=== PATIENT | male | born 1940 | race African-American/Black ===

== ENCOUNTER 2017-09-28 09:39 | Outpatient (CLI) | payer MEDICARE ==
--- NOTE | 2017-09-28 11:17 | Cat Scan Report ---
CT ABDOMEN PELVIS WITHOUT CONTRAST: HISTORY: Left upper quadrant abdominal pain. COMPARISON: none. TECHNIQUE: Helical CT in 1.25mm intervals without IV contrast. Sagittal and coronal reconstructions. FINDINGS: Lung bases: Adequately aerated. Heart size is borderline. Liver: Mild diffuse fatty infiltration is noted. No focal mass or surface nodularity is identified. Biliary system: Normal. Pancreas: Normal. Spleen: Normal. Kidneys/ureters/bladder: Normal. Adrenal glands: Normal. Aorta: Moderate diffuse calcifications. No aneurysm. Intestines: Normal. Appendix: Not confidently identified, correlate with surgical history. Pelvic viscera: Normal. Ascites: None. Adenopathy: None. Musculoskeletal: Mild osteopenia and mild diffuse degenerative changes. No acute fracture or bone lesion identified. IMPRESSION: Mild fatty infiltration of the liver. No acute inflammatory process or clear explanation for left upper quadrant pain. Mild cardiomegaly.
== END 2017-09-28 09:40 | disposition home or self-care (01) ==
LOC: CT 09:39
PROVIDERS: ATTEND Urology
DX: K40.90 Unilateral inguinal hernia, without obstruction or gangrene, not specified as recurrent (principal); I51.7 Cardiomegaly; K76.0 Fatty (change of) liver, not elsewhere classified; I70.0 Atherosclerosis of aorta; M85.88 Other specified disorders of bone density and structure, other site; M47.899 Other spondylosis, site unspecified; I10 Essential (primary) hypertension
CPT/HCPCS: 74176

== ENCOUNTER 2020-07-24 09:34 | Emergency (ER) | payer MEDICARE ==
[2020-07-24] MEDS ORDERED: oxyCODONE /ACETAMINOPHEN 5-325MG TAB PO ONE ×2 (09:53→15:05)
[2020-07-24] MEDS ORDERED: KETOROLAC 60 MG/2 ML INJ IM ONE (09:53)
--- NOTE | 2020-07-24 10:09 | Emergency Department Report ---
ED General Adult HPI - General Chief complaint: Extremity Injury, Lower Stated complaint: GOUT Time Seen by Provider: 07/24/20 09:54 Source: family, EMS Mode of arrival: Wheelchair Limitations: Language Barrier - History of Present Illness Initial comments: 79-year-old male patient with history of hypertension, HLD, and gout presents with complaints of gout attack in the left ankle x3 days. Patient reports history of gout in the ankles. He denies any fever/chills/sweats or injury to the ankle. No history of diabetes or other immunocompromising diseases per patient. He rates his pain as a 10/10 in severity. - Related Data Home Medications Medication Instructions Recorded Confirmed Last Taken Alendronate Sodium [Fosamax] 70 mg PO QWEEK 11/30/15 11/30/15 Unknown Benzonatate [Tessalon Perles] 100 mg PO Q8HR 11/30/15 11/30/15 Unknown Celecoxib [celeBREX] 200 mg PO BID 11/30/15 11/30/15 Unknown Fluticasone Propionate [Flovent 1 puff IH BID 11/30/15 11/30/15 Unknown Diskus] Montelukast [Singulair] 10 mg PO QPM 11/30/15 11/30/15 Unknown Simvastatin [Zocor TAB] 10 mg PO QHS 11/30/15 11/30/15 Unknown Tamsulosin [Flomax] 0.4 mg PO QDAY 11/30/15 11/30/15 Unknown amLODIPine 10 mg PO DAILY 11/30/15 11/30/15 Unknown Previous Rx's Medication Instructions Recorded Last Taken Type levoFLOXacin [Levaquin] 750 mg PO QDAY #5 tablet 12/02/15 Unknown Rx Acetaminophen/Codeine [Tylenol 1 tab PO Q8H PRN #6 tab 07/24/20 Unknown Rx /Codeine # 3 tab] Prednisone [predniSONE 10 mg 10 mg PO .TAPER #1 tab.ds.pk 07/24/20 Unknown Rx (6-Day Pack, 21 Tabs)] Allergies Allergy/AdvReac Type Severity Reaction Status Date / Time No Known Allergies Allergy Verified 07/24/20 09:35 ED Review of Systems ROS: Stated complaint: GOUT Other details as noted in HPI Constitutional: denies: chills, fever, malaise, weakness Musculoskeletal: joint swelling, arthralgia Skin: denies: change in color Neurological: denies: numbness, paresthesias ED Past Medical Hx - Past Medical History Hx Hypertension: Yes Hx HIV: No Additional medical history: HIGH CHOLESTROL - Surgical History Additional Surgical History: Glaucoma 1 year ago in right eye - Social History Smoking Status: Never Smoker Substance Use Type: None - Medications Home Medications: Home Medications Medication Instructions Recorded Confirmed Last Taken Type Alendronate Sodium [Fosamax] 70 mg PO QWEEK 11/30/15 11/30/15 Unknown History Benzonatate [Tessalon Perles] 100 mg PO Q8HR 11/30/15 11/30/15 Unknown History Celecoxib [celeBREX] 200 mg PO BID 11/30/15 11/30/15 Unknown History Fluticasone Propionate [Flovent 1 puff IH BID 11/30/15 11/30/15 Unknown History Diskus] Montelukast [Singulair] 10 mg PO QPM 11/30/15 11/30/15 Unknown History Simvastatin [Zocor TAB] 10 mg PO QHS 11/30/15 11/30/15 Unknown History Tamsulosin [Flomax] 0.4 mg PO QDAY 11/30/15 11/30/15 Unknown History amLODIPine 10 mg PO DAILY 11/30/15 11/30/15 Unknown History levoFLOXacin [Levaquin] 750 mg PO QDAY #5 tablet 12/02/15 Unknown Rx Acetaminophen/Codeine [Tylenol 1 tab PO Q8H PRN #6 tab 07/24/20 Unknown Rx /Codeine # 3 tab] Prednisone [predniSONE 10 mg 10 mg PO .TAPER #1 tab.ds.pk 07/24/20 Unknown Rx (6-Day Pack, 21 Tabs)] ED Physical Exam - General Limitations: Language Barrier General appearance: alert, in no apparent distress - Head Head exam: Present: atraumatic, normocephalic - Eye Eye exam: Present: normal appearance. Absent: scleral icterus - Respiratory Respiratory exam: Absent: respiratory distress - Cardiovascular Cardiovascular Exam: Present: regular rate, normal rhythm - Expanded Lower Extremity Exam Left Ankle exam: Present: tenderness (Diffuse), swelling (Moderate). Absent: full ROM (Decreased secondary to pain), ecchymosis, erythema Neuro vascular tendon exam: Present: no vascular compromise. Absent: sensory deficit, pallor - Neurological Exam Neurological exam: Present: alert, oriented X3 - Psychiatric Psychiatric exam: Present: normal affect, normal mood - Skin Skin exam: Present: warm, dry, intact, normal color. Absent: rash ED Course Vital Signs 07/24/20 07/24/20 09:41 11:42 Temperature 99.8 F H Pulse Rate 115 H 108 H Respiratory 20 18 Rate Blood Pressure 132/76 Blood Pressure 115/77 [Left] O2 Sat by Pulse 97 98 Oximetry ED Medical Decision Making - Lab Data Result diagrams: 07/24/20 12:17 07/24/20 12:17 - Radiology Data Radiology results: report reviewed - Medical Decision Making 79-year-old male patient with history of hypertension, HLD, and gout presents with complaints of gout attack in the left ankle x3 days. Patient reports history of gout in the ankles. He denies any fever/chills/sweats or injury to the ankle. No history of diabetes or other immunocompromising diseases per patient. He rates his pain as a 10/10 in severity. No signs of cellulitis noted on exam. Low-grade temp of 99.8 noted with mild ta chycardia. CBC shows white count of 15.5. Anion gap noted to be 23 on CMP. X- ray is negative for any osteomyelitis or acute bony abnormalities. Uric acid is elevated patient given 1 L saline and Toradol, prednisone, and Percocet. Vitals on repeat are normal with decreased pain and fluids. He is well- appearing and stable for discharge home. Recommend follow-up with primary care doctor within 2 days. The emergency department in detail with patient and patient's daughter both state understanding. Critical care attestation.: If time is entered above; I have spent that time in minutes in the direct care of this critically ill patient, excluding procedure time. ED Disposition Clinical Impression: Gout attack Qualifiers: Gout site: ankle Gout etiology: idiopathic Laterality: left Qualified Code(s): M10.072 - Idiopathic gout, left ankle and foot Disposition: TO HOME OR SELFCARE Is pt being admited?: No Condition: Stable Instructions: Low-Purine Eating Plan Prescriptions: Prednisone [predniSONE 10 mg (6-Day Pack, 21 Tabs)] 10 mg PO .TAPER #1 tab.ds.pk Acetaminophen/Codeine [Tylenol /Codeine # 3 tab] 1 tab PO Q8H PRN #6 tab PRN Reason: Pain , Severe (7-10) Referrals: PRIMARY CARE, [Primary Care Provider] - 3-5 Days
[2020-07-24 12:35] LABS: Basophils # (Auto) 0.1 K/mm3 (0.0-0.1); Basophils % (Auto) 0.3 % (0.0-1.8); Hematocrit 42.8 % (35.5-45.6); Hemoglobin 14.6 gm/dl (11.8-15.2); Lymphocytes # (Auto) 1.3 K/mm3 (1.2-5.4); Lymphocytes % (Auto) 8.5 % (13.4-35.0); Mean Corpuscular HGB Conc 34 % (32-34); Mean Corpuscular Volume 99 fl (84-94); Monocytes # (Auto) 1.8 K/mm3 (0.0-0.8); Monocytes % (Auto) 11.4 % (0.0-7.3); Platelet Count 268 K/mm3 (140-440); Red Blood Count 4.33 M/mm3 (3.65-5.03); Red Cell Distribution Width 13.5 % (13.2-15.2)
--- NOTE | 2020-07-24 12:35 | XRay Report ---
LEFT ANKLE 4 VIEW(S) INDICATION / CLINICAL INFORMATION: acute pain and swelling, hx of gout COMPARISON: None available. FINDINGS: BONES / JOINT(S): No acute fracture or subluxation. No significant arthritis. The ankle mortise is in tact. SOFT TISSUES: Enthesopathy noted at the plantar fascia and Achilles tendon insertion sites. Mild soft tissue swelling around the ankle. ADDITIONAL FINDINGS: None. Signer Name: Alexandru Akbar MD Signed: 07/24/2020 12:31 PM Workstation Name: [id number]
[2020-07-24 12:59] LABS: Alanine Aminotransferase 27 units/L (7-56); BUN/Creatinine Ratio 27; Blood Urea Nitrogen 27 mg/dL (9-20); Calcium 8.6 mg/dL (8.4-10.2); Hemolysis Index 63
[2020-07-24] MEDS ORDERED: SODIUM CHLORIDE 0.9% 1000 ML 1,000 ML IV ONE (13:26)
[2020-07-24 15:18] VITALS: BP 145/74
== END 2020-07-24 15:32 | disposition home or self-care (01) ==
LOC: ED 09:34
DX: M10.9 Gout, unspecified (principal); I10 Essential (primary) hypertension; Z98.890 Other specified postprocedural states; Z79.899 Other long term (current) drug therapy
CPT/HCPCS: 36415; 73610; 80053; 82140; 84550; 85025; 96360; 96372; 99284; J1885; J7030

== ENCOUNTER 2022-04-04 11:11 | Inpatient (IN) | payer MEDICARE ==
--- NOTE | 2022-04-04 12:32 | Emergency Department Report ---
ED Syncope HPI - General Chief Complaint: Altered Mental Status Stated Complaint: ALTERED LEVEL OF RESPONSE Time Seen by Provider: 04/04/22 11:51 Source: patient, family - History of Present Illness Initial Comments: 81-year-old fit obese male with multiple medical problems today after confucianism was in the car and passed out. According to daughter patient was out for approximately 15 minutes with some unresponsive became cyanotic patient had brief episode of coughing prior to event did not lose bowel bladder function Patient denies having chest pain fever chills shortness of breath prior to event Timing/Prior Episodes: single episode today Precipitating Factors: Positive: other (Coughing) Context: sitting Loss of Consciousness: no loss of consciousness - Related Data Allergies/Adverse Reactions: Allergies No Known Allergies Allergy (Verified 04/04/22 11:43) Home Medications: Ambulatory Orders Benzonatate [Tessalon Perles] 100 mg PO Q8HR 11/30/15 Simvastatin (Nf) [Zocor TAB] 10 mg PO QHS 11/30/15 Rosuvastatin Calcium [Crestor] 10 mg PO QDAY #30 04/05/22 Tamsulosin [Flomax] 0.4 mg PO QDAY #30 capsule 04/05/22 ED Review of Systems ROS: Stated complaint: ALTERED LEVEL OF RESPONSE Other details as noted in HPI Constitutional: denies: chills, fever Eyes: denies: eye pain, eye discharge, vision change ENT: denies: ear pain, throat pain Respiratory: denies: cough, shortness of breath, wheezing Cardiovascular: denies: chest pain, palpitations Gastrointestinal: denies: abdominal pain, nausea, diarrhea Genitourinary: denies: urgency, dysuria Skin: denies: rash, lesions Neurological: denies: headache, weakness, paresthesias Psychiatric: denies: anxiety, depression ED Past Medical Hx - Past Medical History Hx Hypertension: Yes Hx HIV: No Additional medical history: HIGH CHOLESTROL - Surgical History Additional Surgical History: Glaucoma 1 year ago in right eye - Social History Smoking Status: Never Smoker - Medications Home Medications: Home Medications Medication Instructions Recorded Confirmed Last Taken Type Benzonatate [Tessalon Perles] 100 mg PO Q8HR 11/30/15 04/04/22 Unknown History Simvastatin (Nf) [Zocor TAB] 10 mg PO QHS 11/30/15 04/04/22 Unknown History Rosuvastatin Calcium [Crestor] 10 mg PO QDAY #30 04/05/22 Unknown Rx Tamsulosin [Flomax] 0.4 mg PO QDAY #30 capsule 04/05/22 Unknown Rx ED Physical Exam - General Limitations: No Limitations, Altered Mental Status General appearance: alert, in no apparent distress - Head Head exam: Present: atraumatic, normocephalic - Eye Eye exam: Present: normal appearance, PERRL, EOMI - ENT ENT exam: Present: normal exam, normal orophraynx, mucous membranes moist - Neck Neck exam: Present: normal inspection - Respiratory Respiratory exam: Present: normal lung sounds bilaterally. Absent: respiratory distress - Cardiovascular Cardiovascular Exam: Present: regular rate, normal rhythm. Absent: systolic murmur, diastolic murmur, rubs, gallop - GI/Abdominal GI/Abdominal exam: Present: soft, normal bowel sounds. Absent: distended, tend erness, guarding - Rectal Rectal exam: Present: deferred - Extremities Exam Extremities exam: Present: normal inspection - Back Exam Back exam: Present: normal inspection, full ROM - Neurological Exam Neurological exam: Present: alert, oriented X3 - Psychiatric Psychiatric exam: Present: normal affect, normal mood - Skin Skin exam: Present: warm, dry, intact, normal color. Absent: rash ED Course Vital Signs 04/04/22 04/04/22 04/04/22 11:43 12:20 13:02 Temperature 98.1 F Pulse Rate 65 64 66 Respiratory 14 Rate Blood Pressure 119/58 121/79 129/71 [Left] O2 Sat by Pulse 98 99 99 Oximetry 04/04/22 04/04/22 04/04/22 14:00 15:00 16:00 Temperature Pulse Rate 81 79 76 Respiratory Rate Blood Pressure 112/76 149/80 126/87 [Left] O2 Sat by Pulse 99 99 99 Oximetry 04/04/22 04/04/22 04/04/22 17:00 18:00 19:55 Temperature 98.6 F Pulse Rate 77 84 77 Respiratory 18 Rate Blood Pressure 145/88 139/84 165/92 [Left] O2 Sat by Pulse 99 99 100 Oximetry ED Medical Decision Making - Lab Data Result diagrams: 04/05/22 05:31 04/05/22 05:31 Critical care attestation.: If time is entered above; I have spent that time in minutes in the direct care of this critically ill patient, excluding procedure time. ED Disposition Clinical Impression: Syncope Disposition: 09 ADMITTED INPATIENT Is pt being admited?: Yes Does the pt Need Aspirin: No Condition: Serious
--- NOTE | 2022-04-04 12:42 | XRay Report ---
CHEST 1 VIEW INDICATION: sob. COMPARISON: 11/29/2015 FINDINGS: SUPPORT DEVICES: None. HEART: Within normal limits. LUNGS/PLEURA: Very mild interstitial edema. No consolidation or effusion. ADDITIONAL FINDINGS: None. IMPRESSION: 1. Lung findings as above. Signer Name: Davy Rod MD Signed: 04/04/2022 12:37 PM Workstation Name: [id number]
[2022-04-04 13:02] LABS: Basophils # (Auto) 0.1 K/mm3 (0.0-0.1); Basophils % (Auto) 0.8 % (0.0-1.8); Eosinophils # (Auto) 0.2 K/mm3 (0.0-0.4); Eosinophils % (Auto) 3.2 % (0.0-4.3); Hematocrit 46.4 % (35.5-45.6); Hemoglobin 15.6 gm/dl (11.8-15.2); Lymphocytes # (Auto) 2.3 K/mm3 (1.2-5.4); Mean Corpuscular HGB Conc 34 % (32-34); Mean Corpuscular Volume 102 fl (84-94); Monocytes # (Auto) 0.7 K/mm3 (0.0-0.8); Monocytes % (Auto) 10.4 % (0.0-7.3); Platelet Count 177 K/mm3 (140-440); Red Blood Count 4.56 M/mm3 (3.65-5.03); Red Cell Distribution Width 13.1 % (13.2-15.2)
[2022-04-04 13:09] LABS: BUN/Creatinine Ratio 15; Blood Urea Nitrogen 17 mg/dL (9-20); Calcium 9.5 mg/dL (8.4-10.2); Hemolysis Index 20
--- NOTE | 2022-04-04 13:27 | Cat Scan Report ---
. CT HEAD WITHOUT CONTRAST INDICATION / CLINICAL INFORMATION: humphries. TECHNIQUE: All CT scans at this location are performed using CT dose reduction for ALARA by means of automated e xposure control. COMPARISON: None available. FINDINGS: HEMORRHAGE: No evidence of intracranial hemorrhage or extra-axial fluid collection. EXTRA-AXIAL SPACES: Cortical sulci and sylvian fissures are enlarged reflecting a degree of parenchym al volume loss which is within normal limits for the patient's age of 79 years. Basilar cisterns have an unremarkable appearance. VENTRICULAR SYSTEM: The third and lateral ventricles are enlarged reflecting presence of age related parenchymal volume loss. Moderate temporal lobe atrophy is present bilaterally. CEREBRAL PARENCHYMA: Periventricular and deep white matter lucency is observed. This is probably seco ndary to microvascular ischemic change. There is no indication of recent infarction. No areas of ence phalomalacia are identified. Dense calcification is seen in the basal ganglia distribution bilaterall y. MIDLINE SHIFT OR HERNIATION: There is no mass effect. CEREBELLUM / BRAINSTEM: Brainstem has an unremarkable appearance. Age related cerebellar atrophy is n oted. MIDLINE STRUCTURES:Pituitary gland has an unremarkable appearance. No abnormalities are seen in the p ineal region. INTRACRANIAL VESSELS:Calcified atherosclerotic plaque is present along the course of the cavernous se gments of both internal carotid arteries. Similar findings are seen at the distal vertebral arteries. CRANIOCERVICAL JUNCTION:No significant abnormality. ORBITS: Post operative changes left orbit including cataract surgery. No additional abnormality. SOFT TISSUES of HEAD: No significant abnormality. CALVARIUM: Evaluation of bone windows reveals no abnormalities. PARANASAL SINUSES / MASTOID AIR CELLS: Paranasal sinuses are free from inflammatory mucosal disease. Mastoid air cells are normally pneumatized. ADDITIONAL FINDINGS: Dural calcifications are observed along the falx. IMPRESSION: 1. Age-related involutional changes of central greater than cortical parenchymal volume loss and micr ovascular ischemic change 2. Moderate bilateral temporal lobe atrophy. 3. No acute intracranial abnormality.. Signer Name: Chaz Monahan MD Signed: 04/04/2022 1:23 PM Workstation Name: [id number]
[2022-04-04] MEDS ORDERED: ONDANSETRON 4 MG/2 ML INJ IV PRN (21:26)
[2022-04-04] MEDS ORDERED: ACETAMINOPHEN 325 MG TAB PO PRN (21:26)
[2022-04-04] MEDS ORDERED: MORPHINE 2 MG/1 ML INJ IV PRN (21:31)
--- NOTE | 2022-04-04 21:49 | History and Physical Report ---
History of Present Illness Date of examination: 04/04/22 Date of admission: 04/04/2022 Chief complaint: Passed out while daughter was driving home from mass after attending latter-day History of present illness: 81-year-old male with history of hypertension and hyperlipidemia passed out in the car while the daughter was driving him home. Became unresponsive for 3 to seconds. Regained consciousness. No seizure activity. No chest pain. Patient has been episode of coughing prior to the event. No urinary incontinence or rectal incontinence. No fever. No shortness of breath on exertion. Patient also has a history of BPH. - Past Medical History --Hypertension: Yes -- HIGH CHOLESTROL --BPH - Surgical History --Additional Surgical History: Glaucoma 1 year ago in right eye - Social History --Smoking Status: Never Smoker -Family history -- Htn - Medications --Home Medications: Home Medications Medication Instructions Recorded Confirmed Last Taken Type Benzonatate [Tessalon Perles] 100 mg PO Q8HR 11/30/15 04/04/22 Unknown History Simvastatin (Nf) [Zocor TAB] 10 mg PO QHS 11/30/15 04/04/22 Unknown History Tamsulosin [Flomax] 0.4 mg PO QDAY 11/30/15 04/04/22 Unknown History Review of Systems ROS: Stated complaint: ALTERED LEVEL OF RESPONSE Other details as noted in HPI Constitutional: denies: chills, fever Eyes: denies: eye pain, eye discharge, vision change ENT: denies: ear pain, throat pain Respiratory: denies: cough, shortness of breath, wheezing Cardiovascular: denies: chest pain, palpitations Gastrointestinal: denies: abdominal pain, nausea, diarrhea Genitourinary: denies: urgency, dysuria Skin: denies: rash, lesions Neurological: denies: headache, weakness, paresthesias Psychiatric: denies: anxiety, depression Medications and Allergies Allergies Allergy/AdvReac Type Severity Reaction Status Date / Time No Known Allergies Allergy Verified 04/04/22 11:43 Home Medications Medication Instructions Recorded Confirmed Last Taken Type Benzonatate [Tessalon Perles] 100 mg PO Q8HR 11/30/15 04/04/22 Unknown History Simvastatin (Nf) [Zocor TAB] 10 mg PO QHS 11/30/15 04/04/22 Unknown History Tamsulosin [Flomax] 0.4 mg PO QDAY 11/30/15 04/04/22 Unknown History Exam - Constitutional Vitals: Temp Pulse Resp BP Pulse Ox 98.6 F 77 18 165/92 100 04/04/22 19:55 04/04/22 19:55 04/04/22 19:55 04/04/22 19:55 04/04/22 19:55 General appearance: Present: no acute distress, well-nourished - EENT Eyes: Present: PERRL ENT: hearing intact, clear oral mucosa - Neck Neck: Present: supple, normal ROM - Respiratory Respiratory effort: normal Respiratory: bilateral: CTA - Cardiovascular Heart rate: 78 Rhythm: regular Heart Sounds: Present: S1 & S2. Absent: rub, click - Extremities Extremities: no ischemia, pulses intact, pulses symmetrical, No edema Peripheral Pulses: within normal limits - Abdominal General gastrointestinal: Present: soft, non-tender, non-distended, normal bowel sounds Male genitourinary: Present: normal - Rectal Rectal Exam: deferred - Integumentary Integumentary: Present: clear, warm, dry - Musculoskeletal Musculoskeletal: gait normal, strength equal bilaterally - Psychiatric Psychiatric: appropriate mood/affect, intact judgment & insight - Neurologic Neurologic: CNII-XII intact, moves all extremities - Allied Health Allied health notes reviewed: nursing, case management HEART Score - HEART Score Troponin: Troponin T < 0.010 ng/mL (0.00-0.029) 04/04/22 12:28 Results - Labs CBC & Chem 7: 04/05/22 05:31 04/05/22 05:31 Labs: Laboratory Last Values WBC 6.5 K/mm3 (4.5-11.0) 04/04/22 12:28 RBC 4.56 M/mm3 (3.65-5.03) 04/04/22 12:28 Hgb 15.6 gm/dl (11.8-15.2) H 04/04/22 12:28 Hct 46.4 % (35.5-45.6) H 04/04/22 12:28 MCV 102 fl (84-94) H 04/04/22 12:28 MCH 34 pg (28-32) H 04/04/22 12:28 MCHC 34 % (32-34) 04/04/22 12:28 RDW 13.1 % (13.2-15.2) L 04/04/22 12:28 Plt Count 177 K/mm3 (140-440) 04/04/22 12:28 Lymph % (Auto) 35.0 % (13.4-35.0) 04/04/22 12: [place] % (Auto) 10.4 % (0.0-7.3) H 04/04/22 12:28 Eos % (Auto) 3.2 % (0.0-4.3) 04/04/22 12: Baso % (Auto) 0.8 % (0.0-1.8) 04/04/22 12: Lymph # (Auto) 2.3 K/mm3 (1.2-5.4) 04/04/22 12: [place] # (Auto) 0.7 K/mm3 (0.0-0.8) 04/04/22 12: Eos # (Auto) 0.2 K/mm3 (0.0-0.4) 04/04/22 12: Baso # (Auto) 0.1 K/mm3 (0.0-0.1) 04/04/22 12: Seg Neutrophils % 50.6 % (40.0-70.0) 04/04/22 12: Seg Neutrophils # 3.3 K/mm3 (1.8-7.7) 04/04/22 12: Sodium 142 mmol/L (137-145) 04/04/22 12: Potassium 5.7 mmol/L (3.6-5.0) H 04/04/22 12: Chloride 107.3 mmol/L (98-107) H 04/04/22 12:28 Carbon Dioxide 22 mmol/L (22-30) 04/04/22 12:28 Anion Gap 18 mmol/L 04/04/22 12:28 BUN 17 mg/dL (9-20) 04/04/22 12:28 Creatinine 1.1 mg/dL (0.8-1.3) 04/04/22 12:28 Estimated GFR > 60 ml/min 04/04/22 12:28 BUN/Creatinine Ratio 15 % 04/04/22 12:28 Glucose 128 mg/dL (75-100) H 04/04/22 12:28 Calcium 9.5 mg/dL (8.4-10.2) 04/04/22 12:28 Troponin T < 0.010 ng/mL (0.00-0.029) 04/04/22 12:28 - Imaging and Cardiology EKG: report reviewed Chest x-ray: report reviewed (Sinus rhythm no acute ST-T wave changes) Assessment and Plan Advance Directives: Yes (Full code) VTE prophylaxis?: Chemical Plan of care discussed with patient/family: Yes - Patient Problems (1) Syncope and collapse Current Visit: Yes Status: Acute Plan to address problem: Syncope work-up Echocardiogram and carotid duplex scan Echocardiogram for ejection fraction, wall motion abnormalities and valve function. To rule out HOCM and aortic stenosis and mitral stenosis. (2) Hyperkalemia Current Visit: Yes Status: Acute Plan to address problem: Was treated in the emergency room with Kayexalate and IV calcium gluconate (3) HTN (hypertension) Current Visit: Yes Status: Chronic Qualifiers: Hypertension type: primary hypertension Qualified Code(s): I10 - Essential (primary) hypertension Plan to address problem: Continue antihypertensives and adjust medications (4) Hyperlipidemia Current Visit: Yes Status: Chronic Qualifiers: Hyperlipidemia type: mixed hyperlipidemia Qualified Code(s): E78.2 - Mixed hyperlipidemia Plan to address problem: Continue statins (5) BPH (benign prostatic hyperplasia) Current Visit: Yes Status: Chronic Qualifiers: Lower urinary tract symptom presence: symptoms present Plan to address problem: Continue Flomax (6) Polycythemia due to fall in plasma volume Current Visit: Yes Status: Acute Plan to address problem: IV fluids for now (7) DVT prophylaxis Current Visit: Yes Status: Acute Plan to address problem: On heparin and GI prophylaxis (8) Advance care planning Current Visit: Yes Status: Acute Plan to address problem: Disease education conducted care plan discussed diagnosis and prognosis discussed. Patient is full code. Patient acknowledged understanding of the care plan. +30 minutes.
[2022-04-04] MEDS: HEPARIN 5,000 UNIT/1 ML VIAL SUB-Q SCH (22:00)
[2022-04-04] MEDS ORDERED: SIMVASTATIN 10 MG PO SCH (22:00)
[2022-04-04] MEDS ORDERED: PRAVASTATIN 20 MG TAB PO SCH (22:00)
[2022-04-04] MEDS: TAMSULOSIN 0.4 MG CAP PO SCH (22:00)
[2022-04-05] MEDS: SODIUM CHLORIDE 0.9% 1000 ML 1,000 ML IV SCH ×2 (01:57→19:12)
[2022-04-05 05:45] LABS: Basophils % (Auto) 0.6 % (0.0-1.8); Eosinophils # (Auto) 0.3 K/mm3 (0.0-0.4); Eosinophils % (Auto) 4.2 % (0.0-4.3); Hematocrit 47.8 % (35.5-45.6); Hemoglobin 16.2 gm/dl (11.8-15.2); Lymphocytes # (Auto) 2.3 K/mm3 (1.2-5.4); Lymphocytes % (Auto) 35.9 % (13.4-35.0); Mean Corpuscular HGB Conc 34 % (32-34); Mean Corpuscular Volume 101 fl (84-94); Monocytes # (Auto) 0.5 K/mm3 (0.0-0.8); Monocytes % (Auto) 7.6 % (0.0-7.3); Platelet Count 178 K/mm3 (140-440); Red Blood Count 4.73 M/mm3 (3.65-5.03); Red Cell Distribution Width 13.2 % (13.2-15.2)
[2022-04-05 06:12] LABS: Alanine Aminotransferase 54 units/L (7-56); Albumin 3.9 g/dL (3.9-5); Blood Urea Nitrogen 16 mg/dL (9-20); Calcium 9.2 mg/dL (8.4-10.2); Hemolysis Index 41
[2022-04-05 06:15] LABS: BUN/Creatinine Ratio 23
[2022-04-05] MEDS: HEPARIN 5,000 UNIT/1 ML VIAL SUB-Q SCH (09:07)
[2022-04-05] MEDS: TAMSULOSIN 0.4 MG CAP PO SCH (09:07)
--- NOTE | 2022-04-05 10:18 | Electrocardiograph Report ---
[facility] Test Date: 2022-04-04 Test Time: 11:34:44 Pat Name: CRISTINA GUZMÁN Department: Room: A476 Gender: M [employer] Member: TV : 1940 Requested By: HAIR SERRANO Order Number: [id number] Reading MD: Stanton Coffman Measurements Intervals [place] Rate: 66 P: 7 SD: 216 QRS: -28 QRSD: 94 T: 105 QT: 409 QTc: 428 Interpretive Statements Sinus rhythm Borderline prolonged SD interval Abnormal T, consider ischemia, lateral leads No previous ECG available for comparison Electronically Signed On 04-05-2022 10:18:33 EDT by Stanton Coffman
--- NOTE | 2022-04-05 13:55 | Vascular Lab Report ---
DUPLEX DOPPLER ULTRASOUND CAROTID, BILATERAL INDICATION / CLINICAL INFORMATION: Syncope. COMPARISON: None available. FINDINGS: RIGHT CAROTID: - PLAQUE ESTIMATE (%): < 50% - CCA velocity: 80.3 cm/sec. - ICA peak systolic velocity: 74.5 cm/sec. - ICA/CCA PSV Ratio: 0.9 Right Vertebral Artery: Antegrade flow. LEFT CAROTID: - PLAQUE ESTIMATE: < 50% - CCA velocity: 77.5 cm/sec. - ICA peak systolic velocity: 65.5 cm/sec. - ICA/CCA PSV Ratio: 0.85 Left Vertebral Artery: Antegrade flow. IMPRESSION: 1. Right Internal Carotid Artery: Less than 50% diameter stenosis. 2. Left Internal Carotid Artery: Less than 50% diameter stenosis. Mild plaque in bilateral carotid arteries Velocity criteria are extrapolated from diameter data as defined by the Society of Radiologists in Ul trasound Consensus Conference, Radiology 2003; 229;340-346. NO STENOSIS (NORMAL) * Plaque = none; ICA PSV < 125 cm/sec; ICA/CCA PSV Ratio < 2.0 <50% STENOSIS * Plaque < 50%; ICA PSV < 125 cm/sec; ICA/CCA PSV Ratio < 2.0 50-69% STENOSIS * Plaque > 50%; ICA PSV = 125-230 cm/sec; ICA/CCA PSV Ratio = 2.0-4.0 >70% BUT <100% STENOSIS * Plaque > 50%; ICA PSV > 230 cm/sec; ICA/CCA PSV Ratio > 4.0 NEAR OCCLUSION * Plaque = visible lumen; ICA PSV = high/low/none; ICA/CCA PSV Ratio = variable TOTAL OCCLUSION * Plaque = no lumen; ICA PSV = none; ICA/CCA PSV Ratio = N/A Signer Name: Carroll Guardado MD Signed: 04/05/2022 1:50 PM Workstation Name: [id number]
[2022-04-05 21:09] VITALS: BP 159/80
== END 2022-04-05 21:00 | disposition home or self-care (01) | DRG 74 ==
LOC: ED 11:11 → 4A 21:26
PROVIDERS: ADMIT Internal Medicine; ATTEND Internal Medicine
DX: G90.8 Other disorders of autonomic nervous system (principal); E78.00 Pure hypercholesterolemia, unspecified; I10 Essential (primary) hypertension; N40.0 Benign prostatic hyperplasia without lower urinary tract symptoms; D75.1 Secondary polycythemia; E78.2 Mixed hyperlipidemia; E87.5 Hyperkalemia; Z82.49 Family history of ischemic heart disease and other diseases of the circulatory system
CPT/HCPCS: 36415; 70450; 71045; 80048; 80053; 84484; 85025; 93005; 93306; 93880; 99285; G0378; C8929; J1644; J7030